=== PATIENT | female | born 1935 | race Caucasian/White ===

== ENCOUNTER 2019-06-06 13:40 | Day surgery (SDC) | payer OTHER, BC ==
[2019-06-05 16:51] VITALS: BMI 23.5
[~2019-06-06 13:40] MED LIST: LIDOCAINE HCL 1%, 10 MG/ML (20ML VIAL) ONE
--- NOTE | 2019-06-06 16:11 | HP ---
Satellite [facility] - Chief Complaint History of Present Illness: 83 year old woman with right sided headache and elevated ESR and CRP. History Source: Patient Limitations to Obtaining History: No Limitations - Past Medical History Allergies/Adverse Reactions: Allergies Allergy/AdvReac Type Severity Reaction Status Date / Time No Known Allergies Allergy Verified 06/05/19 16:53 - Current Medications Current Medications: Home Medications Medication Instructions Recorded Aspirin [Adult Aspirin Regimen] 81 mg PO DAILY 06/05/19 Calcium 250Mg/Vit-D 125 Units 1 tab PO BID 06/05/19 [Oscal 250 mg+D -] Simvastatin 10 mg PO HS 06/05/19 predniSONE [Deltasone -] 20 mg PO DAILY 06/05/19 Satellite Physical Exam - Physical Examination Vital Signs: Vital Signs Period Temp Pulse Resp BP Sys/Diaz Pulse Ox Last 24 Hr 97.8 F 84 18 150/73 98 General Appearance: Alert & Oriented x3 ENT: Clear, Other (Palpable temporal pulses) Lung: Clear to auscultation Heart: Regular rate & rhythm Abdomen: Soft Extremities: No edema Neurological: Cran Nerves II-XII Intact Satellite Impression/Plan - Impression/Plan Impression: R/O Temporal arteritis Operative Procedure: Temporal artery biopsy Date to be Performed: 06/06/19
[2019-06-06] MEDS ORDERED: LIDOCAINE HCL 1%, 10 MG/ML (20ML VIAL) NR ONE (16:40)
--- NOTE | 2019-06-06 17:23 | OP ---
Operative Note - Note: Operative Date: 06/06/19 Pre-Operative Diagnosis: Temporal Arteritis Operation: Biopsy temporal artery, right Findings: Inflamed appearing temporal artery Post-Operative Diagnosis: Same as Pre-op Surgeon: John Pérez Anesthesia: Local Specimens Removed: Temporal artery biopsy Estimated Blood Loss (mls): 5
[2019-06-06 17:43] VITALS: TEMP 98
[2019-06-06 18:30] VITALS: BP 144/75; PULSE 89
--- NOTE | 2019-06-07 09:50 | OP ---
DATE OF OPERATION: 06/06/2019 SURGEON: John Pérez MD DIELECTRIC EMBOSSING MACHINE OPERATOR: JOSÉ MIGUEL Ceballos PROCEDURE: Biopsy of right temporal artery. PREOPERATIVE DIAGNOSIS: Rule out temporal arteritis. POSTOPERATIVE DIAGNOSIS: Rule out temporal arteritis. ANESTHESIA: Local. OPERATIVE FINDINGS: The right superficial temporal artery appeared inflamed. OPERATIVE PROCEDURE: Following routine patient identification, the skin of the right restorationism was prepped with Betadine solution. A time-out was performed. Lidocaine 1% was infiltrated over the temporal artery pulse, and skin incision was made. Electrocautery was used to deepen it into the subcutaneous plane. The artery was mobilized and ligated proximally and distally with silk ties. The intervening section, measuring approximately 3 cm, was removed. The wound was closed with interrupted suture of 4-0 Vicryl on the subcutaneous tissues and 4-0 Biosyn on the skin. Dermabond glue was applied as a dressing. The patient was taken to the ambulatory surgery unit. Teresa PARSONS/[id number]
== END 2019-06-06 18:10 | disposition home or self-care (01) ==
LOC: JASU-SURG 13:40 → JOR 13:40 → JASU-SURG 18:10
PROVIDERS: ATTEND Surgery
PROC: 03BS0ZX Excision of Right Temporal Artery, Open Approach, Diagnostic (ICD-10-PCS; principal; 2019-06-06 16:00)
DX: M31.6 Other giant cell arteritis (principal)

== ENCOUNTER 2021-09-04 20:29 | Observation (INO) | payer OTHER, BC ==
[2021-09-04] MEDS ORDERED: ACETAMINOPHEN 1000 MG/100 ML BAG IVPB ONE (21:33)
[2021-09-04 22:13] LABS: BASO % 0.5 % (0-2.0); EOS % 3.1 % (0-4.5); HEMATOCRIT 36.5 % (32.4-45.2); HEMOGLOBIN 12.2 GM/dL (10.7-15.3); LYMPH % 10.8 % (8-40); MCH 28.4 pg (25.7-33.7); MCHC 33.6 g/dl (32.0-36.0); MEAN CELL VOLUME 84.6 fl (80-96); MEAN PLT VOLUME 7.6 fl (7.5-11.1); MONO % 9.1 % (3.8-10.2); NEUT % 76.5 % (42.8-82.8); PLATELET COUNT 277 10^3/uL (134-434); RBC 4.31 M/mm3 (3.60-5.2); RDW 13.2 % (11.6-15.6); WHITE BLOOD COUNT 10.2 K/mm3 (4.0-10.0)
[2021-09-04] MEDS ORDERED: ACETAMINOPHEN INJECTION 100 ML IVPB ONE (22:16)
[2021-09-04 22:37] LABS: ALBUMIN 3.7 g/dl (3.4-5.0); CALCIUM 8.9 mg/dL (8.5-10.1)
[2021-09-04 22:38] LABS: BLOOD UREA NITROGEN 19.4 mg/dL (7-18)
[2021-09-04 22:40] LABS: CREATININE 0.8 mg/dL (0.55-1.3)
[2021-09-04 22:42] LABS: BILIRUBIN,TOTAL 0.2 mg/dL (0.2-1); TOT PROT 7.5 g/dl (6.4-8.2)
[2021-09-04 22:44] LABS: URINE APPEARANCE CLEAR; URINE BILIRUBIN NEGATIVE (NEGATIVE); URINE COLOR YELLOW; URINE GLUCOSE (UA) NEGATIVE (NEGATIVE); URINE KETONE NEGATIVE (NEGATIVE); URINE LEUK ESTERASE NEGATIVE (NEGATIVE); URINE NITRITE NEGATIVE (NEGATIVE); URINE PROTEIN NEGATIVE (NEGATIVE); URINE UROBILINOGEN 0.2 mg/dL (0.2-1.0)
[2021-09-04] MEDS ORDERED: AMOX TR/POT CLAV 875MG/125MG TABLETS (FP) PO ONE (23:57)
[2021-09-05] MEDS ORDERED: ACETAMINOPHEN 325 MG TABLET (FP) PO PRN (01:50)
[2021-09-05 04:17] VITALS: BMI 26.1
[2021-09-05 07:30] LABS: BLOOD UREA NITROGEN 17.1 mg/dL (7-18); CALCIUM 8.7 mg/dL (8.5-10.1)
[2021-09-05 07:32] LABS: MAGNESIUM 2.4 mg/dL (1.8-2.4)
[2021-09-05 07:33] LABS: ALBUMIN 3.2 g/dl (3.4-5.0); CREATININE 0.6 mg/dL (0.55-1.3)
[2021-09-05 07:35] LABS: BILIRUBIN,TOTAL 0.4 mg/dL (0.2-1); TOT PROT 6.4 g/dl (6.4-8.2)
[2021-09-05 07:36] LABS: PHOSPHOROUS 3.7 mg/dL (2.5-4.9)
[2021-09-05 07:53] LABS: BASO % 0.7 % (0-2.0); EOS % 5.8 % (0-4.5); HEMATOCRIT 33.6 % (32.4-45.2); HEMOGLOBIN 11.4 GM/dL (10.7-15.3); LYMPH % 16.4 % (8-40); MCH 28.8 pg (25.7-33.7); MCHC 33.9 g/dl (32.0-36.0); MONO % 10.9 % (3.8-10.2); NEUT % 66.2 % (42.8-82.8); PLATELET COUNT 270 10^3/uL (134-434); RBC 3.96 M/mm3 (3.60-5.2); RDW 13.1 % (11.6-15.6); WHITE BLOOD COUNT 7.9 K/mm3 (4.0-10.0)
[2021-09-05] MEDS ORDERED: AMOX TR/POT CLAV 875MG/125MG TABLETS (FP) PO SCH (08:00)
[2021-09-05 08:30] VITALS: TEMP 97.8
[2021-09-05] MEDS ORDERED: ENOXAPARIN NA (PORCINE) 40 MG/0.4 ML DISP.SYRIN SQ SCH (10:00)
[2021-09-05 14:37] VITALS: BP 139/79; PULSE 78
== END 2021-09-05 15:00 | disposition home or self-care (01) ==
LOC: JER 20:29 → JERBED 09-05 00:04 → J4W 09-05 03:33
PROVIDERS: ADMIT Internal Medicine; ATTEND Nurse Practitioner Acute Care
PROC: 3E033NZ Introduction of Analgesics, Hypnotics, Sedatives into Peripheral Vein, Percutaneous Approach (ICD-10-PCS; principal; 2021-09-05)
PROC: 3E023GC Introduction of Other Therapeutic Substance into Muscle, Percutaneous Approach (ICD-10-PCS; 2021-09-05)
DX: S02.401A Maxillary fracture, unspecified side, initial encounter for closed fracture (principal); W18.39XA Other fall on same level, initial encounter; Y93.01 Activity, walking, marching and hiking; Y92.410 Unspecified street and highway as the place of occurrence of the external cause; Z99.89 Dependence on other enabling machines and devices; R07.81 Pleurodynia; F03.90 Unspecified dementia, unspecified severity, without behavioral disturbance, psychotic disturbance, mood disturbance, and anxiety; M31.6 Other giant cell arteritis; S01.411A Laceration without foreign body of right cheek and temporomandibular area, initial encounter; Z29.8 Encounter for other specified prophylactic measures
CPT/HCPCS: 36415; 70450-TC; 70486-TC; 71045-TC-FY; 72125-TC; 80053; 81003; 82962; 83735; 84100; 84484; 85025; 87086; 93005; 93010; 96372; 96374; 97116-GP; 97162-GP; 99285-25; C9803-CS; G0378; U0003; U0005